=== PATIENT | female | born 1965 | race African-American/Black ===

== ENCOUNTER 2021-03-28 16:30 | Emergency (ER) | payer MEDICAID ==
[~2021-03-28] VITALS: Ht 170.2 cm; Wt 77.0 kg
[2021-03-28 21:58] LABS: CLARITY URINE TURBID (CLEAR); COLOR URINE YELLOW (YELLOW); KETONES URINE TRACE (NEGATIVE); LEUKOCYTE ESTERASE URINE 3+ (NEGATIVE); NITRITE URINE POSITIVE (NEGATIVE); OCCULT BLOOD URINE 3+ (NEGATIVE); PH URINE 5.5 (4.5-8.0); PROTEIN URINE 3+ (NEGATIVE); SPECIFIC GRAVITY URINE 1.017 (1.005-1.030)
[2021-03-28] MEDS ORDERED: KETOROLAC 30MG/ML VIAL IM ONE (23:00)
[2021-03-28] MEDS ORDERED: CEPHALEXIN 250MG CAPSULE PO ONE (23:00)
[2021-03-28] MEDS ORDERED: NITROFURANTOIN 100MG M/M CAPSULE PO ONE (23:00)
[2021-03-28] MEDS ORDERED: NITR-87 MT (23:37)
[2021-03-28] MEDS ORDERED: IBUP-2029 MT (23:37)
[2021-03-29 00:14] VITALS: BP 165/79
== END 2021-03-29 00:16 | disposition home or self-care (01) ==
LOC: ER 16:30
DX: N39.0 Urinary tract infection, site not specified (principal); I71.4 Abdominal aortic aneurysm, without rupture; R03.0 Elevated blood-pressure reading, without diagnosis of hypertension; M47.817 Spondylosis without myelopathy or radiculopathy, lumbosacral region; Z87.440 Personal history of urinary (tract) infections; Z88.0 Allergy status to penicillin; Z88.2 Allergy status to sulfonamides
CPT/HCPCS: 72131; 81003; 87077; 87086; 87186; 96372; 99284; J1885